=== PATIENT | female | born 1995 ===

== ENCOUNTER 2024-03-03 04:14 | Day surgery (SDC) | payer OTHER ==
[2024-02-27 13:19] VITALS: BMI 21.9
[2024-03-03] MEDS ORDERED: DEXAMETHASONE SOD PHOSPHATE 4 MG/1 ML VIAL ONE (07:13)
[2024-03-03] MEDS ORDERED: ONDANSETRON 4 MG/2 ML VIAL ONE (07:13)
[2024-03-03] MEDS ORDERED: LIDOCAINE HCL/PF 2% SDV 5ML VIAL ONE (07:13)
[2024-03-03] MEDS ORDERED: KETOROLAC TROMETHAMINE 30 MG/1 ML VIAL ONE (07:13)
[2024-03-03] MEDS ORDERED: SUCCINYLCHOLINE CHLORIDE 200 MG/10 ML SYRINGE ONE (07:14)
[2024-03-03] MEDS ORDERED: MIDAZOLAM HCL 2 MG/2 ML SINGLE DOSE VIAL ONE (07:14)
[2024-03-03] MEDS ORDERED: FENTANYL CITRATE/PF 50 MCG/ML VIAL ONE ×3 (07:14→08:40)
[2024-03-03] MEDS ORDERED: PROPOFOL 40 ML ONE (07:14)
[2024-03-03] MEDS ORDERED: oxyCODONE HCL 5 MG TABLET PO PRN ×2 (07:36→07:45)
[2024-03-03] MEDS ORDERED: ONDANSETRON 4 MG/2 ML VIAL IVPUSH PRN ×2 (07:36→07:45)
[2024-03-03] MEDS ORDERED: ELECTROLYTE-148 SOLN 1,000 ML IV SCH (07:45)
[2024-03-03] MEDS ORDERED: IBUPROFEN 600 MG TABLET (FP) PO PRN (07:45)
[2024-03-03] MEDS ORDERED: LACTATED RINGERS SOLUTION 1,000 ML IV SCH (07:45)
[2024-03-03] MEDS ORDERED: IBUPROFEN 800 MG/8 ML IJ IVPB PRN (07:45)
[2024-03-03 10:50] VITALS: RESP 18
[2024-03-03 11:13] VITALS: BP 103/61; PULSE 57; TEMP 98.4
== END 2024-03-03 12:30 | disposition home or self-care (01) ==
LOC: JASU-SURG 04:14
PROVIDERS: ATTEND Obstetrics & Gynecology
PROC: 0UB98ZZ Excision of Uterus, Via Natural or Artificial Opening Endoscopic (ICD-10-PCS; principal; 2024-03-03 07:30)
DX: N93.9 Abnormal uterine and vaginal bleeding, unspecified (principal); N84.0 Polyp of corpus uteri; D50.9 Iron deficiency anemia, unspecified
CPT/HCPCS: 81025; 86850; 86900; 86901; 88305-TC; 88341-TC; 88342-TC; 94760